=== PATIENT | female | born 1950 | race Caucasian/White ===

== ENCOUNTER 2019-06-04 13:19 | Inpatient (IN) | payer MEDICARE, SELFPAY ==
[2019-06-04] VITALS (31 sets, daily range): BP systolic 155–194; BP diastolic 64–116; PULSE 73–101; RESP 4–25; TEMP 36.5–37; O2SAT 90–98
--- NOTE | 2019-06-04 13:30 | DI.RAD_ITS ---
EXAM: XR PORTABLE CHEST AP XR PORTABLE CHEST AP CLINICAL HISTORY: SOB, productive cough, hx of pneumonia. SOB, productive cough, hx of pneumonia TECHNIQUE: 2D digital imaging was performed. COMPARISON: ABD FLAT UPRIGHT PA CHEST from 12/28/2014 FINDINGS: LUNGS: Clear. No pleural abnormality seen. HEART: Normal. MEDIASTINUM: Normal. OTHER FINDINGS: None. IMPRESSION: No acute pulmonary findings. DATA REPOSITORY: RADIATION DOSE DELIVERED:
--- NOTE | 2019-06-04 13:43 | ED.GENADUL_ITS ---
Discharge Plan Disposition Patient Disposition: [facility] INPATIENT Condition: Stable Discharge Details Chief Complaint: RespSymp Clinical Impression: Shortness of breath, COPD (chronic obstructive pulmonary disease) Admit Date/Time: 06/04/19 18:19 Admit Provider: Jordy Rios Attending Provider: Jordy Rios Primary Care Provider: Wei Licona ED Provider: Kamron Cristina Discharge Instructions Activity:: Activity as Tolerated Equipment/Supplies:: No Equipment Needed Diet:: As Tolerated Discharge Orders Discharge Orders: Discharge Order (Routine); Ordered 06/05/19 Ordered By: Juan Black Discharge Data Discharge Date/Time-TO BE ENTERED AT DEPARTURE: 06/04/19 18:50 Medical Decision Making <Tosha Gonzalez - Last Filed: 06/05/19 15:58> 68-year-old female with a history of diabetes and Alzheimer's, diabetes, and COPD and recent diagnosis of pneumonia presents with increasingly worsening shortness of breath, productive cough, and sweats. She states that she has been on levofloxacin and steroids and was recently diagnosed with pneumonia. She states that she was at the hospital for behavioral medicine approximately 3 weeks ago and had close contact with a another person who had upper respiratory type symptoms along with nausea vomiting diarrhea. Patient states that shortly after that she began with similar symptoms. She also is complaining of nausea vomiting diarrhea and some mild left upper quadrant abdominal pain. At this time she is alert and oriented x3 she does have a daughter with her at the bedside she is unclear about her medications. Patient does have Lasix in her medication list but as mentioned, unclear of accuracy of list. At this time work-up ordered including CBC, CMP, blood cultures x2, chest x-ray flu swab and will swab for Covidi 19. DuoNeb ordered. EKG obtained and reviewed by Dr. Leland MAK attending MD old EKG reviewed, no significant changes noted, no ST elevation or depression, no ectopy rate of 88 MT 124 QT/QTc 370/448. 1535: Patient re-evaluation, still c/o SOB and Wet cough noted. Will add on BNP and D-dimer. Exam(s) a RAD:XR portable chest AP EXAM: XR PORTABLE CHEST AP XR PORTABLE CHEST AP CLINICAL HISTORY: SOB, productive cough, hx of pneumonia. SOB, productive cough, hx of pneumonia TECHNIQUE: 2D digital imaging was performed. COMPARISON: ABD FLAT UPRIGHT PA CHEST from 12/28/2014 FINDINGS: LUNGS: Clear. No pleural abnormality seen. HEART: Normal. MEDIASTINUM: Normal. OTHER FINDINGS: None. IMPRESSION: No acute pulmonary findings. DATA REPOSITORY: RADIATION DOSE DELIVERED: Ordered By: Tosha Gonzalez CC: Patient care to be signed off to oncoming Dr. Cristina pending labs (Troponin, D- dimer, BNP) and possible admission. <Kamron Cristina MD - Last Filed: 06/08/19 08:48> Care signed out by BRIELLE Gonzalez -please see her documentation regarding ED presentation and course. Concer for COPD exacberation vs acute CHF exacerbation vs PE vs other. CT interpreted by radiology: No pulmonary embolism. No acute cardiopulmonary disease noted. BNP neg. Plan to admit. Spoke with Dr. Rios who evaluated patient in ED and will admit. HPI <Tosha Gonzalez - Last Filed: 06/05/19 15:58> General Mode of arrival: wheelchair . Date/Time Provider Initiated Documentation: 06/04/19 13:25 . Limitations to Documentation: physical limitation (History of Alzheimer's) . Information obtained by: patient . HPI Narrative: 68-year-old female with a history of diabetes and Alzheimer's, diabetes, and COPD and recent diagnosis of pneumonia presents with increasingly worseening shortness of breath, productive cough, and sweats. She states that she has been on levofloxacin and steroids and was recently diagnosed with pneumonia. She states that she was at the hospital for behavioral medicine approximately 3 weeks ago and had close contact with a another person who had upper respiratory type symptoms along with nausea vomiting diarrhea. Patient states that shortly after that she began with similar symptoms. She also is complaining of nausea vomiting diarrhea and some mild left upper quadrant abdominal pain. At this time she is alert and oriented x3 she does have a daughter with her at the bedside she is unclear about her medications. Related Data Home Medications Medication Instructions Recorded Confirmed hydrocortisone acetate [Anusol-HC] 1 supp RC BID PRN #30 supp.rect 11/16/13 06/05/19 polyethylene glycol 3350 [Miralax] 17 g PO BID prn #527 gm 11/16/13 06/05/19 hyoscyamine sulfate [Levsin] 0.125 mg PO Q4H PRN #40 tab-cap 01/25/14 06/05/19 metformin 500 mg PO BID #90 tab-cap 06/17/14 06/05/19 Spiriva with HandiHaler 1 puff INHALATION HS #3 tab-cap 06/18/14 06/05/19 albuterol sulfate [ProAir HFA] 2 puff INHALATION Q4H PRN #3 06/18/14 06/05/19 inhaler nitroglycerin 1 patch TRANSDERMAL DAILY #90 patch 06/18/14 06/05/19 nitroglycerin [Nitrostat] 0.4 mg SUBLINGUAL PRN #25 tab-cap 06/18/14 06/05/19 pantoprazole [Protonix] 40 mg PO DAILY AM #180 tab-cap 06/18/14 06/05/19 albuterol sulfate 2.5 mg INHALATION Q6H PRN #100 vial 06/23/14 dicyclomine 10 mg PO QID tab-cap 11/08/14 06/05/19 furosemide 60 mg PO DAILY tab-cap 11/08/14 06/05/19 meclizine 25 mg PO DAILY 11/08/14 06/05/19 promethazine 12.5 mg PO BID ml 11/08/14 09/27/16 [id number] 1 ea PO DAILY 09/27/16 09/27/16 [Caltrate 600-D Plus Minerals] ibuprofen 600 mg PO QID PRN #15 tablet 09/27/16 06/05/19 Breo Ellipta INHALATION 06/05/19 bupropion HCl 300 mg PO DAILY 06/05/19 06/05/19 fluoxetine 40 mg PO DAILY 06/05/19 06/05/19 metoprolol succinate 50 mg PO DAILY 06/05/19 06/05/19 prednisone See Rx Instructions .ROUTE 06/05/19 .COMPLEX #20 tab rivastigmine tartrate 4.5 mg PO DAILY 06/05/19 06/05/19 Previous Rx's Medication Instructions Recorded ibuprofen 600 mg PO QID PRN #15 tablet 09/27/16 prednisone See Rx Instructions .ROUTE 06/05/19 .COMPLEX #20 tab Allergies Allergy/AdvReac Type Severity Reaction Status Date / Time influenza virus vaccine, Allergy Severe SWELLING, Unverified 06/04/19 13:31 specific GI UPSET aspirin Allergy Intermediate Hives Unverified 06/04/19 13:31 codeine Allergy Mild SKIN RASH Unverified 06/04/19 13:31 Penicillins Allergy Unverified 06/04/19 13:31 simvastatin AdvReac Intermediate thrombocyto Unverified 06/04/19 13:31 penia topiramate [From Topamax] AdvReac Intermediate NAUSEA Unverified 06/04/19 13:31 General Stated Complaint: RespSymp RODNEY: 2 Review of Systems <Tosha Gonzalez - Last Filed: 06/05/19 15:58> Narrative: Constitutional: Negative for weight loss, alert and oriented, well groomed, normal body habitus, appears comfortable. HEENT: Denies trauma, headaches, blurry vision, nasal discharge, sore throat, trouble swallowing. Chest: Denies chest pain, palpitations, irregular rhythm, hypertension. Respiratory: Positive productive cough, recent pneumonia, shortness of breath. GI: Denies constipation. Positive abdominal pain, nausea, vomiting, diarrhea. : Denies dysuria, hematuria, flank pain, rectal bleeding. Neuro: Denies dizziness, blurry vision, weakness, syncope, headache or facial numbness. Hematologic: Denies easy bruising, intolerance to heat or cold, hair loss. PFSH <Tosha Gonzalez - Last Filed: 06/05/19 15:58> Medical History Adenomatous polyp of colon 2003 Ankle edema Negative US for DVT x 3 in the past Atypical chest pain Benign familial tremor Chronic back pain Collagenous colitis COPD (chronic obstructive pulmonary disease) Depression Diabetes type 2, controlled GERD (gastroesophageal reflux disease) Hyperlipidemia Hypertension IBS (irritable bowel syndrome) Osteoarthritis of left hip Pancreatic insufficiency Pancreatitis Spinal stenosis of lumbar region Vitamin D deficiency Surgical History Abdominal hysterectomy Appendectomy Cholecystectomy Colonoscopy - IV Sedation 2004 ERCP 2009, 2010 (stricture of bile duct), 2012 Nephrectomy (L)for recurrent pyelo Oophrectomy, Left 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 Family History Mother Essential hypertension Heart disease Hyperlipidemia Myocardial infarction Asthma Father Heart disease Hyperlipidemia Stroke Sister Essential hypertension Hyperlipidemia Asthma Sister Myocardial infarction Brother Essential hypertension Heart disease Hyperlipidemia Grandfather Essential hypertension Heart disease Asthma Grandmother Essential hypertension Heart disease Grandmother Essential hypertension Diabetes Hyperlipidemia Sister Diabetes Myocardial infarction Brother Myocardial infarction Grandfather Essential hypertension Diabetes Heart disease Sister Heart disease triple bypass Social History Smoking/Tobacco Use Status: Former Tobacco Use Quit Date: 03/17/97 Tobacco: How many years used: 50 Alcohol Intake: never Drug use: Never Substance use type: does not use Do you feel safe at home: Yes Do you feel safe in your relationship?: Yes Exam <Tosha Gonzalez - [facility] Filed: 06/05/19 15:58> Narrative Exam Narrative: Constitutional: Allert and oriented x3. Appears stated age. Normal body habitus. Head: Normocephalic, no trauma. Eyes: Pupils PERRLA, Red reflex noted, EOM's intact. Eyelids symmetrical withour lesions, discharge, or swelling. ENT: Bilateral TM's WNL, External ear normal to inspection, no mastoid TTP, swelling, or erythema, Nasal turbinates WNL, no nasal discharge. Normal dentition, Posterior pharynx WNL, no exudate. Chest: RRR, Normal S1, S2, distal pulses intact. Resp: Lungs diminished bilaterally, she does have scattered rales and scattered wheezes. Musculoskeletal: Normal gait, 5/5 strength to all four extremities. Skin: No suspicious rashes or lesions. Capillary refill less than 2 sec. she is diaphoretic. Neurologic: Cranial nerves II-XII intact. Alert and oriented x 3. DTR's intact. Hematologic/Lymphatic: No ecchymosis, no lymphadenopathy. Course <Tosha Gonzalez - [facility] Filed: 06/05/19 15:58> Vital Signs Vital signs: Vital Signs Temperature 36.6 C 06/04/19 13:20 Pulse 93 H 06/04/19 13:20 Respiratory Rate 24 06/04/19 13:20 Blood Pressure 161/116 H 06/04/19 13:20 Pulse Oximetry 95 06/04/19 13:20 Temperature 36.6 C 06/04/19 13:20 Temperature Source Skin 06/04/19 13:20 Pulse 93 H 06/04/19 13:20 Respiratory Rate 24 06/04/19 13:20 Respiratory Effort 06/04/19 13:27 Respiratory Depth Shallow 06/04/19 13:27 Blood Pressure 161/116 H 06/04/19 13:20 Blood Pressure Position Supine 06/04/19 13:20 Pulse Oximetry 95 06/04/19 13:20 Oxygen Delivery Method Room Air 06/04/19 13:20 Oxygen Flow Rate 0 06/04/19 13:20 Pain Level 9 06/04/19 13:20 Comment 06/04/19 13:20 Sign Out <Tosha Gonzalez - Last Filed: 06/05/19 15:58> Sign Out Data: Sign Out Comment: Pending labs and possible admission. Last updated by Tosha Gonzalez at 06/04/19 16:10
[2019-06-04] MEDS: Albuterol/Ipratropium 3 ML UPD VIAL UPD ×2 (14:40→22:13)
[2019-06-04 14:58] LABS: Abs Immature Grans 0.01 k/cumm (0.0-0.09); Absolute Basophil Count 0.02 k/cumm (0.0-0.2); Absolute Eosinophil Count 0.04 k/cumm (0.0-0.7); Absolute Lymphocyte Count 2.33 k/cumm (1.2-3.4); Absolute Monocyte Count 0.92 k/cumm (0.11-0.7); Absolute Neutrophil Count 2.15 k/cumm (1.2-6.7); Basophils % 0.4; Eosinophils % 0.7; HCT 45.3 % (36.0-46.0); HGB 15.7 g/dL (12.0-15.5); Immature Grans % 0.2 %; Lymphocytes % 42.6; Mean Corp. HGB Concentration 34.7 g/dL (32.0-36.0); Mean Corpuscular Hemoglobin 30.3 pg (27.0-33.0); Mean Corpuscular Volume 87.5 fL (80-95); Mean Platelet Volume 9.7 fL (8.0-11.0); Monocytes % 16.8; Neutrophils % 39.3; Platelet Count 237 x1000/uL (130-400); RBC 5.18 m/cumm (4.00-5.20); RBC Distribution Width 13.9 % (11.7-14.6); White Blood Cell Count 5.47 k/cumm (4.4-10.8)
[2019-06-04 15:00] LABS: Bilirubin Negative (Negative); Blood Trace-intact (Negative); Clarity Clear (Clear); Glucose Negative (Negative); Ketones Negative (Negative); Leukocyte Esterase Negative (Negative); Nitrite Negative (Negative); Specific Gravity >= 1.030 (1.005-1.025); Urobilinogen 0.2 EU/dL (Up TO 0.2); pH 6.5 (5-8)
[2019-06-04 15:11] LABS: Bacteria Few HPF (Negative); C & S Indicated? No; Crystals Negative HPF (Negative); Epithelial Cells Many HPF (Negative); Mucus Negative (Negative); RBC 0-2 HPF (0-2); WBC 0-2 HPF (0-5)
[2019-06-04 15:13] LABS: ALT 36 U/L (14-59); AST 48 U/L (15-37); Albumin 3.7 g/dL (3.4-5.0); Alkaline Phosphatase 76 U/L (46-116); Anion Gap 13.3 mmol/L (3-11); BUN 8 mg/dL (7-18); Bilirubin, Total 0.6 mg/dL (0.2-1.0); CO2 23.7 mmol/L (21.0-32.0); CREATININE 1.07 mg/dL (0.55-1.02); Calcium 9.3 mg/dL (8.5-10.1); Chloride 105 mmol/L (98-107); Glucose 115 mg/dL (74-106); Potassium 3.4 mmol/L (3.5-5.1); Sodium 142 mmol/L (136-145); Total Protein 7.9 g/dL (6.4-8.2)
[2019-06-04 16:08] LABS: Troponin I < 0.05 ng/Ml (<0.06)
[2019-06-04 16:22] LABS: D-Dimer 1575 ng/mlFEU (<500)
--- NOTE | 2019-06-04 16:30 | DI.CT_ITS ---
EXAM: CT CHEST PE CTA CLINICAL HISTORY: cough, shortness of breath TECHNIQUE: COMPARISON: ABD PELVIS WITH CONTRAST from 10/05/2009 FINDINGS: CT angiography of the chest was performed with bolus infusion of 100 cc of Omnipaque 350. There is marked motion artifact. The lungs are grossly clear. No major pulmonary embolus identified but smaller lower lobe vessels are not ideally visualized. Thoracic aorta and major branches appear intact. No mediastinal or hilar adenopathy. Tracheobronchial tree appears intact. Left lower lobe pulmonary scarring noted, no change from September 2009. Images obtained through the upper abdomen show grossly unremarkable appearance of visualized portions of liver and spleen. IMPRESSION: Somewhat limited study. No evidence of pulmonary embolic disease or other acute process
[2019-06-04 16:40] LABS: NT-proBNP 59 pg/mL (<300)
[2019-06-04] MEDS: Omnipaque 350 MG/ML 100 ML BTL IJ (17:23)
--- NOTE | 2019-06-04 18:04 | W.PM.HP.N ---
Date of service: 06/04/19 Time of Service: 18:04 Assessment and Plan Assessment and plan (1) COPD (chronic obstructive pulmonary disease): Status: Chronic Assessment and plan: COPD exacerbation in setting of flu-like illness. Low risk COVID, but not zero. After one week of Levaquin and no response, and negative CXR I'm not sure continued antibiotics are necessary. Will add steroids, scheduled duonebs and monitor clinical response. Reviewed advance directives, requests DNR. History of Present Illness History of Present Illness Chief Complaint: SOB Narrative: 68 female with COPD, rep[orts contact with friend with URI 2 weeks ago at [facility]. Reports one week of cough, SOB, myalgia, anorexia, weakness and SOB. Started on Levaquin one week CARBONATION TESTER by PCP, no help. Here in ER findings of note for absence of fever, sat 94%, absence of lekocytosis, negative CXR and elevated d-Dimer; CTA negative PE. In meantime patient has received duoneb w/o effect. No travel, no known COVID exposure. No flu shot. Flu swab here negative, COVID pending. Admitted for further management. Review of Systems All systems reviewed & are unremarkable except as noted in HPI and below PFSH Medical History Adenomatous polyp of colon 2003 Ankle edema Negative US for DVT x 3 in the past Atypical chest pain Benign familial tremor Chronic back pain Collagenous colitis COPD (chronic obstructive pulmonary disease) Depression Diabetes type 2, controlled GERD (gastroesophageal reflux disease) Hyperlipidemia Hypertension IBS (irritable bowel syndrome) Osteoarthritis of left hip Pancreatic insufficiency Pancreatitis Spinal stenosis of lumbar region Vitamin D deficiency Surgical History Abdominal hysterectomy Appendectomy Cholecystectomy Colonoscopy - IV Sedation 2003 ERCP 2009, 2010 (stricture of bile duct), 2012 Nephrectomy (L)for recurrent pyelo Oophrectomy, Left 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 Family History Mother Essential hypertension Heart disease Hyperlipidemia Myocardial infarction Asthma Father Heart disease Hyperlipidemia Stroke Sister Essential hypertension Hyperlipidemia Asthma Sister Myocardial infarction Brother Essential hypertension Heart disease Hyperlipidemia Grandfather Essential hypertension Heart disease Asthma Grandmother Essential hypertension Heart disease Grandmother Essential hypertension Diabetes Hyperlipidemia Sister Diabetes Myocardial infarction Brother Myocardial infarction Grandfather Essential hypertension Diabetes Heart disease Sister Heart disease triple bypass Social History Smoking/Tobacco Use Status: Former Tobacco Use Drug use: Never Do you feel safe in your relationship?: Yes Meds Home Medications and Allergies Home Medications Medication Instructions Recorded Confirmed Type hydrocortisone acetate [Anusol-HC] 1 supp RC BID PRN #30 supp.rect 11/16/13 History polyethylene glycol 3350 [Miralax] 17 g PO BID prn #527 gm 11/16/13 History hyoscyamine sulfate [Levsin] 0.125 mg PO Q4H PRN #40 tab-cap 01/25/14 History metformin 500 mg PO q PM #90 tab-cap 06/17/14 History albuterol sulfate [ProAir HFA] 2 puff INHALATION Q4H PRN #3 06/18/14 History inhaler atorvastatin 40 mg PO HS #90 tab-cap 06/18/14 History budesonide-formoterol [Symbicort] 2 puff INHALATION BID #3 inhaler 06/18/14 History metoprolol tartrate 100 mg PO TID #270 tab-cap 06/18/14 History nitroglycerin 1 patch TRANSDERMAL DAILY #90 patch 06/18/14 History nitroglycerin [Nitrostat] 0.4 mg SUBLINGUAL PRN #25 tab-cap 06/18/14 History pantoprazole [Protonix] 40 mg PO BID #180 tab-cap 06/18/14 History tiotropium bromide [Spiriva with 1 puff INHALATION HS #3 tab-cap 06/18/14 History HandiHaler] albuterol sulfate 2.5 mg INHALATION Q6H PRN #100 vial 06/23/14 History dicyclomine 10 mg PO QID tab-cap 11/08/14 09/27/16 History furosemide 60 mg PO DAILY tab-cap 11/08/14 09/27/16 History meclizine 12.5 mg PO TID 11/08/14 09/27/16 History promethazine 12.5 mg PO BID ml 11/08/14 09/27/16 History sertraline 50 mg PO DAILY tab-cap 11/08/14 09/27/16 History propranolol 20 mg PO BID 01/21/16 07/14/17 History [id number] 1 ea PO DAILY 09/27/16 09/27/16 History [Caltrate 600-D Plus Minerals] ibuprofen 600 mg PO QID PRN #15 tablet 09/27/16 Rx Allergies Allergy/AdvReac Type Severity Reaction Status Date / Time influenza virus vaccine, Allergy Severe SWELLING, Unverified 06/04/19 13:31 specific GI UPSET aspirin Allergy Intermediate Hives Unverified 06/04/19 13:31 codeine Allergy Mild SKIN RASH Unverified 06/04/19 13:31 Penicillins Allergy Unverified 06/04/19 13:31 simvastatin AdvReac Intermediate thrombocyto Unverified 06/04/19 13:31 penia topiramate [From Topamax] AdvReac Intermediate NAUSEA Unverified 06/04/19 13:31 Exam Narrative Exam Narrative: 173/77, 101, 24, 37. 94% RA. HEENT AT/NC; nedck supple; lungs diffuse wheeze; heart distant but RRR; abdomen soft and NT; extremities w/o edema; neuro ox3, non-focal, lucid. Results Labs Result diagrams: 06/04/19 14:32 06/04/19 14:32 Labs: Laboratory Results - last 24 hr 06/04/19 06/04/19 06/04/19 14:15 14:32 14:32 WBC 5.47 RBC 5.18 Hgb 15.7 H Hct 45.3 MCV 87.5 MCH 30.3 MCHC 34.7 RDW 13.9 Plt Count 237 MPV 9.7 Immature Gran % 0.2 Neutrophils % 39.3 Lymphocytes % 42.6 Monocytes % 16.8 Eosinophils % 0.7 Basophils % 0.4 Absolute Neutrophils 2.15 Absolute Lymphocytes 2.33 Absolute Monocytes 0.92 H Absolute Eosinophils 0.04 Absolute Basophils 0.02 D-Dimer Sodium 142 Potassium 3.4 L Chloride 105 Carbon Dioxide 23.7 Anion Gap 13.3 H BUN 8 Creatinine 1.07 H Estimated GFR/1.73 m2 50.70 Glucose 115 H Calcium 9.3 Total Bilirubin 0.6 AST 48 H ALT 36 Alkaline Phosphatase 76 Troponin I NT-Pro-B Natriuret Pep Total Protein 7.9 Albumin 3.7 Urine Color Yellow Urine Clarity Clear Urine pH 6.5 Ur Specific Hume >= 1.030 H Urine Protein Trace H Urine Ketones Negative Urine Blood Trace-intact H Urine Nitrite Negative Urine Bilirubin Negative Urine Urobilinogen 0.2 Ur Leukocyte Esterase Negative Urine RBC 0-2 Urine WBC 0-2 Ur Epithelial Cells Many Urine Crystals Negative Urine Bacteria Few Urine Mucus Negative Ur Culture Indicated? No Urine Glucose Negative 06/04/19 06/04/19 14:32 14:32 WBC RBC Hgb Hct MCV MCH MCHC RDW Plt Count MPV Immature Gran % Neutrophils % Lymphocytes % Monocytes % Eosinophils % Basophils % Absolute Neutrophils Absolute Lymphocytes Absolute Monocytes Absolute Eosinophils Absolute Basophils D-Dimer 1575 H Sodium Potassium Chloride Carbon Dioxide Anion Gap BUN Creatinine Estimated GFR/1.73 m2 Glucose Calcium Total Bilirubin AST ALT Alkaline Phosphatase Troponin I < 0.05 NT-Pro-B Natriuret Pep 59 Total Protein Albumin Urine Color Urine Clarity Urine pH Ur Specific Hume Urine Protein Urine Ketones Urine Blood Urine Nitrite Urine Bilirubin Urine Urobilinogen Ur Leukocyte Esterase Urine RBC Urine WBC Ur Epithelial Cells Urine Crystals Urine Bacteria Urine Mucus Ur Culture Indicated? Urine Glucose Last Vital Signs Temp 37 C 06/04/19 17:56 Pulse 101 H 06/04/19 17:56 Resp 24 06/04/19 17:56 BP 173/77 H 06/04/19 17:56 Pulse Ox 94 L 06/04/19 17:56
--- NOTE | 2019-06-04 18:07 | DI.VRAD_ITS ---
PROCEDURE INFORMATION: Exam: CT Angiography Chest With Contrast Exam date and time: 06/04/2019 4:38 PM Age: 68 years old Clinical indication: Abnormal findings; Abnormal diagnostic tests; Elevated d-dimer; Cough and shortness of breath; Patient HX: Cough, SOB TECHNIQUE: Imaging protocol: Computed tomographic angiography of the chest with intravenous contrast. 3D rendering: MIP and/or 3D reconstructed images were created by the technologist. COMPARISON: CT CHEST FOR PULMONARY EMBOLUS 12/16/2014 13:33 FINDINGS: Pulmonary arteries: No evidence for pulmonary embolus. Aorta: Atherosclerotic disease. Lungs: Mild emphysematous lung disease. Stable left lower lobe lateral segment and left lower lobe posterior segment scarring versus pleural thickening lung compared to prior study 2014. Pleural space: Biapical pleural thickening. Heart: Unremarkable. No cardiomegaly. No pericardial effusion. Liver: Hepatic steatosis. Gallbladder and bile ducts: Pneumobilia. Lymph nodes: Unremarkable. No enlarged lymph nodes. Bones/joints: Unremarkable for age. No acute fracture. Soft tissues: Unremarkable. Other findings: Breathing artifact degrades image quality. IMPRESSION: 1. No evidence for pulmonary embolus. 2. Emphysematous lung disease. 3. Stable pleural or parenchymal scarring left lung. Dictated and Authenticated by: Misa Gottlieb MD. Ordering:PHIL Lundy MD
[2019-06-04] MEDS: methylPREDNISolone SUCC 125 MG VIAL IVP (21:00)
[2019-06-04] MEDS: Normal Saline 1,000 ML 150 ML IV (21:30)
[2019-06-04] MEDS: Enoxaparin 40 MG/0.4 ML SYR SC (22:37)
[2019-06-04] MEDS: Melatonin 3 MG TAB PO (23:29)
[2019-06-05] MEDS: methylPREDNISolone SUCC 40 MG VIAL IVP ×2 (01:05→11:15)
[2019-06-05] MEDS: Albuterol/Ipratropium 3 ML UPD VIAL UPD (01:05)
[2019-06-05 01:35] VITALS: RESP 8
[2019-06-05] MEDS: Pantoprazole 40 MG TABCR PO (06:30)
[2019-06-05 06:35] VITALS: BP 163/78; PULSE 85; RESP 16; TEMP 36.6; O2SAT 96
[2019-06-05] MEDS: Normal Saline 1,000 ML 100 ML IV (07:04)
[2019-06-05 08:35] VITALS: BP 166/85; RESP 22; TEMP 37.1
[2019-06-05] MEDS: Acetaminophen 325 MG TAB 650 MG PO (10:27)
[2019-06-05 10:45] VITALS: BP 165/83; PULSE 81; RESP 20; TEMP 36.6; O2SAT 96
[2019-06-05] MEDS: Metoprolol CR 50 MG TABCR PO (11:14)
[2019-06-05] MEDS: Furosemide 20 MG TAB 60 MG PO (11:15)
[2019-06-05] MEDS: FLUoxetine 20 MG CAP 40 MG PO (11:15)
[2019-06-05] MEDS: Insulin Aspart 300 UNITS/3 ML PEN SC ×2 (11:16→13:08)
[2019-06-05] MEDS: Rivastigmine 1.5 MG CAP 4.5 MG PO (11:19)
[2019-06-05] MEDS: buPROPion-XL 150 MG TABCR 300 MG PO (11:19)
[2019-06-05 13:08] VITALS: BP 140/83; PULSE 66; RESP 18; TEMP 36.7; O2SAT 96
[2019-06-05] MEDS: Dicyclomine 10 MG CAP PO (14:54)
[2019-06-05 15:03] VITALS: BP 142/71; PULSE 66; RESP 20; TEMP 36.9; O2SAT 95
--- NOTE | 2019-06-05 17:26 | W.PM.DS.N ---
Date of service: 06/05/19 Time of Service: 14:26 DS: Diagnosis Discharge Diagnosis (1) COPD (chronic obstructive pulmonary disease): Status: Chronic Discharge Plan Disposition Patient Disposition: HOME Condition: Stable Discharge Details Chief Complaint: RespSymp Reason For Visit: COPD Admit Date/Time: 06/04/19 18:19 Admit Provider: Jordy Rios Attending Provider: Jordy Rios Primary Care Provider: Wei Licona ED Provider: Kamron Cristina Hospital Course Hospital Course: 68-year-old patient with history of COPD who presented with 1 week of cough, shortness of breath, myalgia, generalized weakness, and anorexia. She had received 1 week course of Levaquin and oral steroids and was not improving. Her evaluation emergency room included negative cardiac enzymes, and elevated d-dimer but negative CTA, and a low NT?proBNP. The CT showed some old scarring and emphysema, but did not look like pneumonia. The white count was normal. No fevers. Flu a and B antigens were negative. COVID 19 swab was sent and is pending at time of discharge. Patient was placed in the respiratory ICU unit for monitoring with test pending. She was treated with IV steroids and bronchodilators for COPD exacerbation. She maintained good oxygenation in the mid 90s on room air. It was felt that ongoing hospitalization presented a higher risk for her, so she was sent home to maintain isolation precautions and finish a prednisone taper along with her bronchodilators. Home Meds and New Rx's Prescriptions: New prednisone 20 mg tablet See Rx Instructions .ROUTE .COMPLEX Qty: 20 RF: 0 Continued hydrocortisone acetate [Anusol-HC] 25 MG suppository 1 supp RC BID PRN Qty: 30 RF: 1 polyethylene glycol 3350 [Miralax] 527 GM powder 17 g PO BID prn Qty: 527 RF: 4 hyoscyamine sulfate [Levsin] 0.125 MG tablet 0.125 mg PO Q4H PRN Qty: 40 RF: 2 metformin 500 MG tablet 500 mg PO BID Qty: 90 RF: 3 nitroglycerin 1 EACH patch 24 hour 1 patch Transdermal DAILY Qty: 90 RF: 3 pantoprazole [Protonix] 40 MG tablet,delayed release (DR/EC) 40 mg PO DAILY AM Qty: 180 RF: 4 nitroglycerin [Nitrostat] 0.4 MG tablet, sublingual 0.4 mg Sublingual PRN Qty: 25 RF: 11 albuterol sulfate [ProAir HFA] 8.5 GM HFA aerosol inhaler 2 puff Inhalation Q4H PRN Qty: 3 RF: 4 Spiriva with HandiHaler 18 MCG capsule, w/inhalation device 1 puff Inhalation HS Qty: 3 RF: 4 albuterol sulfate 2.5 MG/3 ML solution for nebulization 2.5 mg Inhalation Q6H PRN Qty: 100 RF: 4 promethazine 6.25 MG/5 ML syrup 12.5 mg PO BID RF: 0 meclizine 12.5 MG tablet 25 mg PO DAILY RF: 0 furosemide 20 MG tablet 60 mg PO DAILY RF: 0 dicyclomine 10 MG capsule 10 mg PO QID RF: 0 [id number] [Caltrate 600-D Plus Minerals] 1 EACH tablet 1 ea PO DAILY RF: 0 ibuprofen 600 MG tablet 600 mg PO QID PRN (Reason: Pain) Qty: 15 RF: 0 Breo Ellipta 200-25 mcg/dose blister with device INHALATION RF: 0 fluoxetine 40 mg capsule 40 mg PO DAILY RF: 0 metoprolol succinate 50 mg Tablet Extended Release 24 Hr 50 mg PO DAILY RF: 0 rivastigmine tartrate 4.5 mg capsule 4.5 mg PO DAILY RF: 0 bupropion HCl 300 mg tablet extended release 24 hr 300 mg PO DAILY RF: 0 Discharge Instructions Instructions: COPD (Chronic Obstructive Pulmonary Disease) (DC) Additional Instructions: pickling solution maker the prescription and start prednisone at 60mg today continue your home inhalers Quarantine at home per the protocol in a private bedroom and bathroom. You will be contacted with results of COVID-19 swab. Activity:: Activity as Tolerated Equipment/Supplies:: No Equipment Needed Diet:: As Tolerated Discharge Orders Discharge Orders: Discharge Order (Routine); Ordered 06/05/19 Ordered By: Juan Black Discharge Data Discharge Date/Time-TO BE ENTERED AT DEPARTURE: 06/05/19 16:30 Discharge Comment: stable DS: Summary Status at Discharge Functional status at discharge: independent ambulation Overall status at discharge: patient is progressing back to baseline Mental Status: mental status grossly normal Speech and Movement: speech and movement normal Mood: congruent mood Affect: normal affect Exam Narrative Exam Narrative: 96% RA. HEENT AT/NC, MMM; neck supple; normal respiratory effort, lungs with slight diffuse wheeze; heart distant but RRR; abdomen soft and NT; extremities w/o edema; neuro ox3, non-focal, lucid. Psych Mental Status: mental status grossly normal Speech and Movement: speech and movement normal Mood: congruent mood Affect: normal affect DS: Data Vitals/I&O Vitals and I&O: Vital Signs Temperature 36.9 C 06/05/19 15:03 Temperature Source Temporal Artery Scan 06/05/19 15:03 Pulse 66 06/05/19 15:03 Pulse Rhythm Regular 06/05/19 08:20 Pulse 82 06/04/19 17:20 Respiratory Rate 20 06/05/19 15:03 Respiratory Effort Non-Labored 06/05/19 08:20 Respiratory Depth Normal 06/05/19 08:20 Respiratory Pattern Normal 06/05/19 08:20 Blood Pressure 142/71 H 06/05/19 15:03 Blood Pressure Mean 96 06/04/19 17:55 Blood Pressure Position Supine 06/04/19 13:20 Pulse Oximetry 95 06/05/19 15:03 Oxygen Delivery Method Room Air 06/05/19 15:03 Oxygen Flow Rate 0 06/05/19 15:03 Pain Level 0 06/05/19 15:03 Comment 06/05/19 10:45 Intake & Output 06/04/19 06/05/19 06/05/19 23:59 11:59 23:59 Intake Total 300 / 300 883.333 / 1815.003 931.67 / 1815.003 Output Total 900 / 900 Balance 300 / 300 -16.667 / 915.003 931.67 / 915.003 Weight 76.3 kg Intake: IV 240 / 240 883.333 / 1715.003 831.67 / 1715.003 Oral 60 / 60 100 / 100 Output: Urine 900 / 900 Other: Urine Color Yellow Urine Appearance Clear Urine Odor None Stool Size Small Small Stool Characteristics Liquid Liquid Brown Brown Voiding Methods Bedside Commode Data Completed and Pending Labs on day of discharge: Labs from last 24 hours 06/04/19 18:36 Troponin I Cancelled 06/04/19 16:00 Blood Blood Culture - Pending Preliminary micro results at discharge 06/04/19 14:32 Blood Culture - Preliminary Blood NO GROWTH 24 HOURS 06/04/19 16:00 Blood Culture - Pending Blood [facility] Medical History Adenomatous polyp of colon 2003 Ankle edema Negative US for DVT x 3 in the past Atypical chest pain Benign familial tremor Chronic back pain Collagenous colitis COPD (chronic obstructive pulmonary disease) Depression Diabetes type 2, controlled GERD (gastroesophageal reflux disease) Hyperlipidemia Hypertension IBS (irritable bowel syndrome) Osteoarthritis of left hip Pancreatic insufficiency Pancreatitis Spinal stenosis of lumbar region Vitamin D deficiency Surgical History Abdominal hysterectomy Appendectomy Cholecystectomy Colonoscopy - IV Sedation 2003 ERCP 2009, 2010 (stricture of bile duct), 2011 Nephrectomy (L)for recurrent pyelo Oophrectomy, Left 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 Family History Mother Essential hypertension Heart disease Hyperlipidemia Myocardial infarction Asthma Father Heart disease Hyperlipidemia Stroke Sister Essential hypertension Hyperlipidemia Asthma Sister Myocardial infarction Brother Essential hypertension Heart disease Hyperlipidemia Grandfather Essential hypertension Heart disease Asthma Grandmother Essential hypertension Heart disease Grandmother Essential hypertension Diabetes Hyperlipidemia Sister Diabetes Myocardial infarction Brother Myocardial infarction Grandfather Essential hypertension Diabetes Heart disease Sister Heart disease triple bypass Social History Smoking/Tobacco Use Status: Former Tobacco Use Quit Date: 03/17/97 Tobacco: How many years used: 50 Alcohol Intake: never Drug use: Never Substance use type: does not use Do you feel safe at home: Yes Do you feel safe in your relationship?: Yes
[2019-06-07 10:09] LABS: COVID-19 RT-PCR Result Not Detected (NotDetected)
== END 2019-06-05 16:30 | disposition home or self-care (01) | DRG 192 ==
LOC: ER 18:34 → RICU 19:13
PROVIDERS: Registered Nurse Emergency; Admitting Provider General Practice; Emergency Provider Student in an Organized Health Care Education/Training Program; PCP Neuromusculoskeletal Medicine & OMM; Visit Provider General Practice
DX: J44.1 Chronic obstructive pulmonary disease with (acute) exacerbation (principal); J11.1 Influenza due to unidentified influenza virus with other respiratory manifestations; G30.9 Alzheimer's disease, unspecified; F02.80 Dementia in other diseases classified elsewhere, unspecified severity, without behavioral disturbance, psychotic disturbance, mood disturbance, and anxiety; E11.9 Type 2 diabetes mellitus without complications; G25.0 Essential tremor; G89.29 Other chronic pain; M54.9 Dorsalgia, unspecified; K52.831 Collagenous colitis; F32.9 Major depressive disorder, single episode, unspecified; K21.9 Gastro-esophageal reflux disease without esophagitis; E78.5 Hyperlipidemia, unspecified; I10 Essential (primary) hypertension; K86.89 Other specified diseases of pancreas; E55.9 Vitamin D deficiency, unspecified; M48.061 Spinal stenosis, lumbar region without neurogenic claudication; Z90.5 Acquired absence of kidney; Z96.641 Presence of right artificial hip joint; M16.12 Unilateral primary osteoarthritis, left hip; Z66 Do not resuscitate
CPT/HCPCS: 36415; 71275; 80053; 87040; 87449; 93005; 94640; 99222; 99238; 99285; J1650; U0003; 71045; 81003; 81015; 83880; 84484; 85025; 85379; 93010; J2930; J3490; J7620